=== PATIENT | female | born 1945 | race Hispanic/Latino ===

== ENCOUNTER 2020-03-18 11:40 | Outpatient (CLI) | payer MEDICARE, BC ==
--- NOTE | 2020-03-18 12:09 | RAD ---
Exam: XR Shoulder Rt 2 View HISTORY: Right shoulder pain. COMPARISON: None FINDINGS: Right glenohumeral osteoarthropathy is present. There is right acromioclavicular joint osteoarthritis . No fracture or dislocation is seen on internal and external rotated views of the right shoulder. Glenohumeral relationship is difficult to evaluate without scapular Y view or axillary view. Vascular calcification are seen in the thoracic aorta. IMPRESSION: 1. Right glenohumeral osteoarthropathy. 2. Right acromioclavicular joint osteoarthritis.
--- NOTE | 2020-03-18 12:11 | RAD ---
Exam: XR Shoulder Lt 2 View HISTORY: Left shoulder pain. COMPARISON: 10/21/2006 FINDINGS: Mild left acromioclavicular joint osteoarthritis is present with mild left glenohumeral osteoarthropa thy present. Scapular Y view or axillary view is not provided for evaluation of the glenohumeral relationship. No obvious dislocation seen. No fracture is identified. Vascular calcifications are see n in the thoracic aorta. IMPRESSION: 1. Mild left glenohumeral osteoarthropathy and acromion clavicular joint osteoarthritis. 2. No acute osseous abnormality.
== END 2020-03-18 11:41 | disposition home or self-care (01) ==
LOC: BICRAD 11:40
PROVIDERS: ATTEND Family Medicine
DX: M25.511 Pain in right shoulder (principal); M25.512 Pain in left shoulder; M19.012 Primary osteoarthritis, left shoulder; M19.011 Primary osteoarthritis, right shoulder

== ENCOUNTER 2021-01-03 07:47 | Observation (INO) | payer BC, MEDICARE ==
[2021-01-03] MEDS ORDERED: Sucralfate 1 GM/10 ML UDCUP ONE (08:40)
[2021-01-03] MEDS ORDERED: Aspirin Chewable 81 MG TAB ONE (08:40)
[2021-01-03] MEDS ORDERED: Famotidine/PF 20 mg/2ml Vial ONE (08:40)
[2021-01-03 09:09] LABS: #Basophils 0.1 thou/uL (0.0-0.2); #Eosinphils 0.3 thou/uL (0.0-0.7); #Lymphocytes 1.8 thou/uL (1.20-3.40); #Monocytes 0.7 thou/uL (0.11-0.59); #Neutrophils 4.6 thou/uL (1.40-6.50); %Basophils 1.4 % (0.0-1.0); %Eosinophils 3.7 % (0.0-10.0); %Lymphocytes 24.1 % (21.0-51.0); %Monocytes 9.1 % (0.0-10.0); %Neutrophils 61.7 % (42.0-75.0); Hemoglobin 12.6 g/dL (12.0-16.0); Mean Corpuscular HGB CONC 34.7 g/dL (32.0-36.0); Mean Corpuscular Hemoglobin 31.5 pg (27.0-31.0); Mean Corpuscular Volume 90.7 fL (78.0-98.0); Mean Platelet Volume 6.4 fL (7.4-10.4); Platelet Count 277 thou/uL (130-400); RBC Distribution Width 11.8 % (11.5-14.5); Red Blood Cell (RBC) Count 4.01 mill/uL (4.20-5.40); White Blood Cell (WBC) Count 7.5 thou/uL (4.8-10.8)
[2021-01-03 09:24] LABS: ALT (SGPT) 19 U/L (8-55); AST (SGOT) 21 U/L (5-34); Albumin 4.4 g/dL (3.4-4.8); Alkaline Phosphatase 109 U/L (40-110); Anion Gap 15 mmol/L (10-20); BUN (Urea Nitrogen) 19 mg/dL (9.8-20.1); Bilirubin, Total 0.8 mg/dL (0.2-1.2); Calc. Creatinine Clearance 0 mL/min (70-130); Calcium 9.5 mg/dL (7.8-10.44); Carbon Dioxide 25 mmol/L (23-31); Chloride 102 mmol/L (98-107); Globulin 2.9 g/dL (2.4-3.5); Glucose 107 mg/dL (83-110); Lipase 13 U/L (8-78); Magnesium 1.8 mg/dL (1.6-2.6); Potassium 3.5 mmol/L (3.5-5.1); Protein, Total 7.3 g/dL (5.8-8.1); Sodium 138 mmol/L (136-145)
[2021-01-03] MEDS ORDERED: Iopamidol-370 76% 500 ML 1 ML ONE (10:10)
[2021-01-03] MEDS ORDERED: Senokot S 8.6-50 MG TAB PO PRN (12:14)
[2021-01-03] MEDS ORDERED: HYDROcodone/Acetaminophen 5/325 mg Tablet PO PRN (12:14)
[2021-01-03] MEDS ORDERED: Acetaminophen 325 MG TAB PO PRN (12:14)
[2021-01-03 12:57] LABS: Troponin I Less than 0.010 ng/mL (< 0.028)
[2021-01-03] MEDS ORDERED: Nitroglycerin 0.4 MG TAB (25 Tab Bottle) SL PRN (12:59)
[2021-01-03] MEDS: HYDROcodone/Acetaminophen 5/325 mg Tablet PO PRN ×2 (14:37→19:03)
[2021-01-03 15:40] LABS: Troponin I Less than 0.010 ng/mL (< 0.028)
[2021-01-03 16:13] VITALS: BMI 26.6
[2021-01-03] MEDS: Sucralfate 1 GM TAB PO SCH (20:10)
[2021-01-04 05:47] LABS: #Eosinphils 0.2 thou/uL (0.0-0.7); #Lymphocytes 2.1 thou/uL (1.20-3.40); #Monocytes 0.5 thou/uL (0.11-0.59); #Neutrophils 3.2 thou/uL (1.40-6.50); %Basophils 0.3 % (0.0-1.0); %Eosinophils 3.2 % (0.0-10.0); %Lymphocytes 34.7 % (21.0-51.0); %Monocytes 8.3 % (0.0-10.0); %Neutrophils 53.4 % (42.0-75.0); Hemoglobin 11.8 g/dL (12.0-16.0); Mean Corpuscular HGB CONC 33.8 g/dL (32.0-36.0); Mean Corpuscular Volume 91.6 fL (78.0-98.0); Platelet Count 253 thou/uL (130-400); RBC Distribution Width 11.7 % (11.5-14.5); Red Blood Cell (RBC) Count 3.82 mill/uL (4.20-5.40); White Blood Cell (WBC) Count 6.1 thou/uL (4.8-10.8)
[2021-01-04 06:10] LABS: Anion Gap 12 mmol/L (10-20); BUN (Urea Nitrogen) 18 mg/dL (9.8-20.1); Calc. Creatinine Clearance 69 mL/min (70-130); Calcium 9.2 mg/dL (7.8-10.44); Carbon Dioxide 26 mmol/L (23-31); Cardiac Risk 3.2 (Less than 4.5); Chloride 106 mmol/L (98-107); Cholesterol 164 mg/dl (< 200 Desired); Glucose 110 mg/dL (83-110); HDL Cholesterol 51 mg/dL (>60 Neg Risk); LDL Cholesterol, Calculated 89 mg/dL; Potassium 3.5 mmol/L (3.5-5.1); Sodium 140 mmol/L (136-145); Triglycerides 118 mg/dL (Less than 150)
[2021-01-04] MEDS ORDERED: Non-Formulary Item 1 EACH (Cyclobenzaprine Hcl [Cyclobenzaprine Hcl] 5 MG Tablet) PO PRN (07:32)
[2021-01-04] MEDS ORDERED: Cyclobenzaprine 10 MG TAB PO PRN (07:40)
[2021-01-04] MEDS: HYDROcodone/Acetaminophen 5/325 mg Tablet PO PRN ×2 (08:30→13:32)
[2021-01-04] MEDS: Sucralfate 1 GM TAB PO SCH ×2 (08:34→11:30)
[2021-01-04] MEDS ORDERED: Hydrochlorothiazide 25 MG TAB PO SCH (09:00)
[2021-01-04] MEDS ORDERED: Non-Formulary Item 1 EACH (Hydrochlorothiazide [Hydrochlorothiazide] 12.5 MG Tablet) PO SCH (09:00)
[2021-01-04] MEDS ORDERED: Atorvastatin Calcium 40 MG TAB PO SCH (09:00)
[2021-01-04] MEDS ORDERED: Amlodipine 10 MG TAB PO SCH (09:00)
[2021-01-04] MEDS ORDERED: Aspirin Chewable 81 MG TAB PO SCH (09:00)
[2021-01-04] MEDS ORDERED: Enoxaparin Sodium 40 MG/0.4 ML SYRINGE SC SCH (09:00)
[2021-01-04] MEDS ORDERED: Famotidine 20 MG TAB PO SCH (09:00)
[2021-01-04] MEDS ORDERED: DULoxetine 60 MG CAP PO SCH (09:00)
[2021-01-04] MEDS ORDERED: Non-Formulary Item 1 EACH (Fluticasone Propionate [Flovent Diskus] 50 MCG Blst.W.Dev) EA NARE SCH (09:00)
[2021-01-04] MEDS ORDERED: Losartan 25 MG TAB PO SCH (09:00)
[2021-01-04] MEDS ORDERED: ADENOSINE 60 MG/20 ML VIAL ONE (10:01)
[2021-01-04 16:00] LABS: Bacteria/HPF 1+ HPF (None Seen); Bilirubin Negative (Negative); Blood, Urine Negative (Negative); Clarity Turbid (Clear); Glucose, Urine (Dipstick) Normal (Negative); Ketone, Urine 20 mg/dL (Negative); Leukocyte 250 Leu/uL (Negative); Nitrite Negative (Negative); Protein, Urine (Dipstick) Negative (Neg-Trace); RBC/HPF 0-3 HPF (0-3); Specific Gravity, Urine 1.018 (1.002-1.036); Urobilinogen Normal mg/dL (Less than 2); WBC/HPF Greater than 50 HPF (0-3)
[2021-01-04 16:01] LABS: Urine Culture Reflex No No
[2021-01-04 17:27] VITALS: BP 158/63; TEMP 98.1
[2021-01-04] MEDS ORDERED: Mometasone Furoate 30 PUFF 220 MCG INH SCH (18:30)
== END 2021-01-04 18:16 | disposition home or self-care (01) ==
LOC: ERS 07:47 → 2SW 11:08
PROVIDERS: ADMIT Internal Medicine; ATTEND Nurse Practitioner Family
DX: R07.89 Other chest pain (principal); I10 Essential (primary) hypertension; E78.5 Hyperlipidemia, unspecified; K44.9 Diaphragmatic hernia without obstruction or gangrene; R91.1 Solitary pulmonary nodule; K21.9 Gastro-esophageal reflux disease without esophagitis; M25.512 Pain in left shoulder; Z79.51 Long term (current) use of inhaled steroids; Z79.899 Other long term (current) drug therapy
CPT/HCPCS: 36415; 71045; 71275; 78452; 80048; 80053; 80061; 81001; 83690; 83735; 83880; 84439; 84443; 84481; 84484; 85025; 87077; 87086; 87186; 93005; 93017; 96374; A9500; J0153; J1650; Q9967; S0028

== ENCOUNTER 2022-04-03 08:20 | Outpatient (CLI) | payer BC, MEDICARE | END 2022-04-03 08:21 | disposition home or self-care (01) | LOC: BICMAMMO 08:20 | PROVIDERS: ATTEND Student in an Organized Health Care Education/Training Program | DX: Z13.820 Encounter for screening for osteoporosis (principal); Z78.0 Asymptomatic menopausal state; M81.0 Age-related osteoporosis without current pathological fracture; M85.851 Other specified disorders of bone density and structure, right thigh; M85.852 Other specified disorders of bone density and structure, left thigh | CPT/HCPCS: 77080 ==

== ENCOUNTER 2022-05-30 13:35 | Emergency (ER) | payer BC, MEDICARE ==
[2022-05-30 14:15] LABS: Actual Bicarbonate (HCO3v) 26 mEq/L (22-28); Base Excess -0.1 mEq/L (-2.0 to +3.0); Calcium, Ionized (venous) 1.19 mmol/L (1.16-1.32); Chloride (VBG) 102 mmol/L (98-106); Potassium (VBG) 3.91 mmol/L (3.70-5.30); Sodium 137.1 mmol/L (133-146); pH (venous) 7.36 (7.32-7.43)
[2022-05-30 14:20] LABS: #Basophils 0.1 thou/uL (0.0-0.2); #Eosinphils 0.2 thou/uL (0.0-0.7); #Lymphocytes 3.4 thou/uL (1.20-3.40); #Monocytes 0.4 thou/uL (0.11-0.59); #Neutrophils 4.6 thou/uL (1.40-6.50); %Basophils 0.6 % (0.0-1.0); %Eosinophils 2.3 % (0.0-10.0); %Lymphocytes 38.9 % (21.0-51.0); %Monocytes 5.1 % (0.0-10.0); %Neutrophils 53.2 % (42.0-75.0); Hemoglobin 12.4 g/dL (12.0-16.0); Mean Corpuscular HGB CONC 34.9 g/dL (32.0-36.0); Mean Corpuscular Hemoglobin 32.3 pg (27.0-31.0); Mean Corpuscular Volume 92.7 fl (78.0-98.0); Mean Platelet Volume 7.1 fL (7.4-10.4); Platelet Count 228 10x3/uL (130-400); RBC Distribution Width 12.2 % (11.5-14.5); Red Blood Cell (RBC) Count 3.83 mill/uL (4.20-5.40); White Blood Cell (WBC) Count 8.6 10x3/uL (4.8-10.8)
[2022-05-30] MEDS ORDERED: Famotidine/PF 20 mg/2ml Vial ONE (14:20)
[2022-05-30 14:43] LABS: ALT (SGPT) 17 U/L (8-55); AST (SGOT) 17 U/L (5-34); Albumin 4.5 g/dL (3.4-4.8); Alkaline Phosphatase 97 U/L (40-110); Anion Gap 13 mmol/L (10-20); BUN (Urea Nitrogen) 23 mg/dL (9.8-20.1); Bilirubin, Total 0.4 mg/dL (0.2-1.2); Calc. Creatinine Clearance 0 mL/min (70-130); Calcium 10.1 mg/dL (7.8-10.44); Carbon Dioxide 26 mmol/L (23-31); Chloride 105 mmol/L (98-107); Estimated GFR 85; Globulin 2.7 g/dL (2.4-3.5); Glucose 96 mg/dL (83-110); Potassium 3.9 mmol/L (3.5-5.1); Protein, Total 7.2 g/dL (5.8-8.1); Sodium 140 mmol/L (136-145)
== END 2022-05-30 15:01 | disposition home or self-care (01) ==
LOC: ERS 13:35
DX: I10 Essential (primary) hypertension (principal); E78.00 Pure hypercholesterolemia, unspecified; Z79.899 Other long term (current) drug therapy
CPT/HCPCS: 36415; 71045; 80053; 82805; 83880; 84484; 85025; 93005; 96374; S0028

== ENCOUNTER 2022-12-04 09:55 | Outpatient (CLI) | payer BC, MEDICARE ==
[2022-12-04] MEDS ORDERED: Iopamidol 370 76% 100 ML VIAL ONE (10:10)
== END 2022-12-04 09:56 | disposition home or self-care (01) ==
LOC: CT 09:55
PROVIDERS: ATTEND Family Medicine
DX: R41.3 Other amnesia (principal); R09.89 Other specified symptoms and signs involving the circulatory and respiratory systems; I67.82 Cerebral ischemia; I65.22 Occlusion and stenosis of left carotid artery
CPT/HCPCS: 70470; 93880; Q9967

== ENCOUNTER 2023-02-12 09:30 | Outpatient (CLI) | payer BC, MEDICARE | END 2023-02-12 09:31 | disposition home or self-care (01) | LOC: BICRAD 09:30 | PROVIDERS: ATTEND Family Medicine | DX: M25.562 Pain in left knee (principal); M17.12 Unilateral primary osteoarthritis, left knee; M25.462 Effusion, left knee ==

== ENCOUNTER 2023-12-24 08:04 | Outpatient (CLI) | payer BC, MEDICARE | END 2023-12-24 08:05 | disposition home or self-care (01) | LOC: SCSMRI 08:04 | PROVIDERS: ATTEND Family Medicine | DX: M47.26 Other spondylosis with radiculopathy, lumbar region (principal); M48.061 Spinal stenosis, lumbar region without neurogenic claudication; M51.369 Other intervertebral disc degeneration, lumbar region without mention of lumbar back pain or lower extremity pain; M51.35 Other intervertebral disc degeneration, thoracolumbar region; M48.05 Spinal stenosis, thoracolumbar region; M51.379 Other intervertebral disc degeneration, lumbosacral region without mention of lumbar back pain or lower extremity pain; N28.89 Other specified disorders of kidney and ureter | CPT/HCPCS: 72148 ==

== ENCOUNTER 2023-12-30 15:27 | Outpatient (CLI) | payer BC, MEDICARE | END 2023-12-30 15:28 | disposition home or self-care (01) | LOC: CT 15:27 | PROVIDERS: ATTEND Family Medicine | DX: N28.89 Other specified disorders of kidney and ureter (principal); N28.1 Cyst of kidney, acquired; R59.0 Localized enlarged lymph nodes | CPT/HCPCS: 74170; 82565 ==